=== PATIENT | female | born 1950 | race Caucasian/White ===

== ENCOUNTER 2020-06-22 21:40 | Inpatient (IN) | payer MEDICARE, MEDICAID ==
[2020-06-22 22:49] LABS: PTT 28.3 sec (22.9-36.1); Prothrombin Time 13.7 sec (12.0-14.7)
[2020-06-22 23:06] LABS: ALT (SGPT) 14 U/L (8-55); AST (SGOT) 14 U/L (5-34); Albumin 3.6 g/dL (3.4-4.8); Alkaline Phosphatase 121 U/L (40-110); Anion Gap 16 mmol/L (10-20); BUN (Urea Nitrogen) 14 mg/dL (9.8-20.1); Bilirubin, Total 0.6 mg/dL (0.2-1.2); Calc. Creatinine Clearance 0 mL/min (70-130); Calcium 8.5 mg/dL (7.8-10.44); Carbon Dioxide 18 mmol/L (23-31); Chloride 111 mmol/L (98-107); Globulin 2.9 g/dL (2.4-3.5); Glucose 118 mg/dL (80-115); Potassium 4.1 mmol/L (3.5-5.1); Protein, Total 6.5 g/dL (6.0-8.3); Sodium 141 mmol/L (136-145)
[2020-06-22 23:09] LABS: #Eosinphils 0.1 thou/uL (0.0-0.7); #Monocytes 1.1 thou/uL (0.11-0.59); %Basophils 0.3 % (0.0-1.0); %Eosinophils 0.6 % (0.0-10.0); %Lymphocytes 15.1 % (21.0-51.0); %Monocytes 8.5 % (0.0-10.0); %Neutrophils 75.4 % (42.0-75.0); Hemoglobin 13.7 g/dL (12.0-16.0); Mean Corpuscular HGB CONC 34.3 g/dL (32.0-36.0); Mean Corpuscular Hemoglobin 30.7 pg (27.0-31.0); Mean Corpuscular Volume 89.6 fL (78.0-98.0); Mean Platelet Volume 6.5 fL (7.4-10.4); Platelet Count 399 thou/uL (130-400); RBC Distribution Width 11.9 % (11.5-14.5); Red Blood Cell (RBC) Count 4.47 mill/uL (4.20-5.40); White Blood Cell (WBC) Count 13.2 thou/uL (4.8-10.8)
[2020-06-23] MEDS ORDERED: Lorazepam 2 MG/ML VIAL ONE (00:28)
--- NOTE | 2020-06-23 00:55 | PDOC.FPRHP ---
- History of Present Illness Chief Complaint: seizure History of Present Illness: Pt is a 69yo female with PMH dementia, seizure disorder and HTN who [facility]. At the outside ED she was found to meet SIRS criteria, source unknown and transferred here. The rest of the history was obtained from her daughter who is her MPOA and is at bedside. Pt had been given a dose of ativan before we saw her. She had 2 seizures at the [facility]entiary today. First one was witnessed by her while he was visiting her. She also had a seizure at the outside ED. Pt's baseline is A&O x1 or 2 and she has been at her baseline. No s/s of any illness and had been eating/drinking per normal. At outside ED she was found to meet SIRS criteria: tachycardia, tachypneic, WBC 16. Also latic acid 6.8. UA only positive for ketones and high specific gravity. Given 1L bolus, zosyn and vanc. Bcx and UCx done She takes keppra for seizure disorder and her keppra level was 10. ED Course: Zosyn, 2L IVF - Allergies/Adverse Reactions Allergies Allergy/AdvReac Type Severity Reaction Status Date / Time NON-FAT DRY MILK Allergy Uncoded 06/23/20 01:41 - Home Medications Medication Instructions Recorded Confirmed Type Atorvastatin Calcium [Lipitor] 20 mg PO DAILY 06/23/20 06/23/20 History Donepezil HCl [Aricept] 10 mg PO DAILY 06/23/20 06/23/20 History Melatonin 5 mg PO QPM 06/23/20 06/23/20 History QUEtiapine Fumarate [SEROquel] 50 mg PO TID 06/23/20 06/23/20 History clonazePAM [Clonazepam] 0.25 mg PO TID PRN 06/23/20 06/23/20 History levETIRAcetam [Keppra] 500 mg PO BID 06/23/20 06/23/20 History - History PMHx: Dementia, HLD, Cerebellar ataxia, epilepsy, HTN PSHx: appendectomy FHx: sister - dementia, mother of cancer, father pancreatic cancer Social: No TAD - Review of Systems ROS unobtainable: due to mental status - Vital signs BP: 135/88, HR 103, RR 14, Temp 98.4F, O2 95% on RA, Wt 56.7kg - Physical Exam Constitutional: NAD -Constitutional: somnolent s/p ativan HEENT: normocephalic and atraumatic Neck: supple Heart: RRR, normal S1/S2, no murmurs/rubs/gallops, no edema Lungs: CTAB, no respiratory distress, no wheezing Abdomen: soft, non-tender -Musculoskeletal: contractions of both UE and LE Neurological: no focal deficit Skin: no rash/lesions -Skin: no sacral wounds seen Heme/Lymphatic: no unusual bruising or bleeding FMR H&P: Results - Labs Result Diagrams: 06/23/20 02:21 06/23/20 02:21 Lab results: WBC 13.2 thou/uL (4.8-10.8) H 06/22/20 22:49 Hgb 13.7 g/dL (12.0-16.0) 06/22/20 22:49 Hct 40.1 % (36.0-47.0) 06/22/20 22:49 MCV 89.6 fL (78.0-98.0) 06/22/20 22:49 Plt Count 399 thou/uL (130-400) 06/22/20 22:49 Neutrophils % 75.4 % (42.0-75.0) H 06/22/20 22:49 Sodium 141 mmol/L (136-145) 06/22/20 22:32 Potassium 4.1 mmol/L (3.5-5.1) 06/22/20 22:32 Chloride 111 mmol/L (98-107) H 06/22/20 22:32 Carbon Dioxide 18 mmol/L (23-31) L 06/22/20 22:32 BUN 14 mg/dL (9.8-20.1) 06/22/20 22:32 Creatinine 0.80 mg/dL (0.6-1.1) 06/22/20 22:32 Glucose 118 mg/dL (80-115) H 06/22/20 22:32 Lactic Acid 2.4 mmol/L (0.5-2.2) H 06/22/20 22:49 Calcium 8.5 mg/dL (7.8-10.44) 06/22/20 22:32 Total Bilirubin 0.6 mg/dL (0.2-1.2) 06/22/20 22:32 AST 14 U/L (5-34) 06/22/20 22:32 ALT 14 U/L (8-55) 06/22/20 22:32 Alkaline Phosphatase 121 U/L (40-110) H 06/22/20 22:32 B-Natriuretic Peptide 33.9 pg/mL (0-100) 06/22/20 22:49 Serum Total Protein 6.5 g/dL (6.0-8.3) 06/22/20 22:32 Albumin 3.6 g/dL (3.4-4.8) 06/22/20 22:32 FMR H&P: A/P - Plan Pt is a 69yo female with hx of seizure disorder, HTN, dementia who was a transfer from outside ED for seizure and SIRS #SIRS -WBC 16>13, HR106 -lactic acid 6.8>2.4. UA neg -CXR: peribronchial cuffing b/l, official read pending -s/p 2L NS -possible developing pna vs. breakthrough seizure -given zosyn and vanc in ED. will change to azithromycin and rocephin for suspected CAP -pending BCx and UCx at [place] #seizure -hx of seizure disorder, on keppra -Brain CT report pending -last seizure was 1 year ago according to family -etiology: infection, TIA/CVA, worsening dementia -unable to fully assess neuro function due to recently being given ativan -keppra level 10 -consider neuro consult in am, may need to adjust keppra dose -ativan prn #HTN #HLD #Dementia -continue home meds -CM consulted for help with discharge planning back to [place] Code: DNR IVF: SL DVT Ppx: lovenox Diet: NPO pending BSS Dispo: Admit to stroke, will continue work up for source of infection, LOS>48hrs FMR H&P: Upper Level - Plan Date/Time: 06/23/20 0055 Marisol, [Pippa Campos], have evaluated this patient and agree with findings/plan as outlined by internal combustion engineer resident. Pertinent changes/additions are listed here. Liat is a 69 yo F with dementia, mood disorder and seizures who presents as lord tfx for concern for sepsis and seizures. She lives at [facility]. Per daughter she seized at the [facility] and so was brought to the [place] ER. She had another witnessed seizure and they gave her 1mg of ativan. Additionally she was found to be tachycardic with WBC 16 and latic acid ~6 so sepsis alert called and she was given 1L bolus, 1g Vanc, 4.5g zosyn and Bcx drawn. UA was negative aside from ketones and high specific gravity. Patient is non verbal and sedated b/c of ativan but daughter states she hadn't had any changes in behavior or eating or seemed to be off the past few days. In regards to seizure history she has been on Keppra for seizures from her dementia her daughter states and they have been controlled. Her keppra level was~10 in the ER here. SIRS with concern for PNA -Initial WBC of 16, tachycardic, tachypneic -Received 2L fluids -CXR with peribronchial cuffing, no consolidation, pending procal-could be early PNA -UA negative, pending UCx -s/p vanc & zosyn, will treat for CAP with rocephin & azithro, pending BCx Seizures -Two seizures in past 24 hours. Etiologies include TIA/CVA, infection, worsening dementia, dehydration -CT head official read pending, appears WNL -Admit to stroke, risk stratify, consider brain MRI in AM pending clinical status -Continue home keppra dosing, keppra level lower end of normal -Consider neuro consult in AM for EEG, may need to inc. keppra dosing -Strict bed rest, NPO pendin bedside swallow -Ativan PRN for breakthrough seizures Elevated lactic acid -6 down to 1.7 after 2L fluids Addendum - Attending - Attending Attestation Date/Time: 06/23/20 0830 I personally evaluated the patient and discussed the management with resident team I agree with the History, Examination, Assessment and Plan documented above with any addition or exceptions noted below. 69 yo female admitted for recurrent seizures on 06/22/20 with underlying epilepsy, dementia, and cerebellar ataxia No seizure activity since admission. CT negative for acute changes. Will increase Kepra level. Discuss with neuro if any new changes needed. Consult palliative care for goals of therapy. Consult speech to make sure safe for PO meds. D/c later today if able vs in AM. ABrayMD
[2020-06-23] MEDS ORDERED: Acetaminophen 325 MG TAB PO PRN (01:29)
[2020-06-23] MEDS ORDERED: Ondansetron PF 4 MG/2 ML Vial IVP PRN (01:29)
[2020-06-23] MEDS ORDERED: Ondansetron ODT 4 MG TAB PO PRN (01:29)
[2020-06-23] MEDS ORDERED: clonazePAM 0.5 MG TAB PO PRN (01:50)
[2020-06-23 02:01] LABS: Lactic Acid 1.7 mmol/L (0.5-2.2)
[2020-06-23] MEDS ORDERED: Lorazepam 2 MG/ML VIAL SLOW IVP PRN (02:13)
[2020-06-23] MEDS ORDERED: levETIRAcetam 500 MG TAB PO SCH ×3 (02:30→09:00)
[2020-06-23 02:31] LABS: #Eosinphils 0.1 thou/uL (0.0-0.7); #Lymphocytes 1.3 thou/uL (1.20-3.40); #Neutrophils 9.6 thou/uL (1.40-6.50); %Basophils 0.3 % (0.0-1.0); %Eosinophils 0.6 % (0.0-10.0); %Lymphocytes 10.9 % (21.0-51.0); %Monocytes 8.5 % (0.0-10.0); %Neutrophils 79.8 % (42.0-75.0); Mean Corpuscular Hemoglobin 30.6 pg (27.0-31.0); Mean Corpuscular Volume 89.9 fL (78.0-98.0); Mean Platelet Volume 6.3 fL (7.4-10.4); Platelet Count 341 thou/uL (130-400); RBC Distribution Width 11.9 % (11.5-14.5); Red Blood Cell (RBC) Count 4.59 mill/uL (4.20-5.40); White Blood Cell (WBC) Count 12.1 thou/uL (4.8-10.8)
[2020-06-23 02:53] LABS: Anion Gap 15 mmol/L (10-20); BUN (Urea Nitrogen) 16 mg/dL (9.8-20.1); Calc. Creatinine Clearance 0 mL/min (70-130); Calcium 8.4 mg/dL (7.8-10.44); Carbon Dioxide 19 mmol/L (23-31); Chloride 115 mmol/L (98-107); Glucose 110 mg/dL (80-115); Potassium 3.9 mmol/L (3.5-5.1); Sodium 145 mmol/L (136-145)
[2020-06-23] MEDS ORDERED: levETIRAcetam in NS 500 MG in Premix Bag 1 BAG IVPB SCH ×2 (03:45→09:00)
[2020-06-23] MEDS ORDERED: Azithromycin 500 MG in Sodium Chloride 0.9% 250 ML 250 ML IVPB SCH (04:00)
[2020-06-23] MEDS ORDERED: cefTRIAXone\\ROCEPHIN 1 GM in Sodium Chloride 0.9% 100 ML IVPB SCH (04:00)
[2020-06-23] MEDS ORDERED: cefTRIAXone\\ROCEPHIN 1 GM VIAL ONE (04:28)
[2020-06-23] MEDS ORDERED: Azithromycin 500 MG VIAL ONE (04:59)
--- NOTE | 2020-06-23 08:22 | CT ---
PRELIMINARY REPORT/[facility]/EMERGENCY AFTER HOURS PROCEDURE EXAM: CT Head Without Intravenous Contrast. CLINICAL HISTORY: SEPSIS, NEW ONSET OF SEIZURES. PT HAS HX OF ALZHEIMERS TECHNIQUE: Axial computed tomography images of the head/brain without intravenous contrast. COMPARISON: None provided. FINDINGS: BRAIN: No acute intraparenchymal hemorrhage. No mass lesion. No CT evidence for acute territorial infarct. N o midline shift or extra-axial collection. There is moderate age-related atrophy and periventricular deep white matter small vessel changes. VENTRICLES: No hydrocephalus. ORBITS: The orbits are unremarkable. SINUSES AND MASTOIDS: The paranasal sinuses and mastoid air cells are clear. SOFT TISSUES: No significant facial or scalp soft tissue swelling evident. No radiopaque foreign body is seen. BONES: No acute skull fracture. IMPRESSION: No acute intracranial abnormality. There is moderate age-related atrophy. ELECTRONICALLY SIGNED BY: Fidelia Muro DO Jun 23, 2020 1:16:27 AM ANALYST PROGRAMMER This report is intended for review by the ordering physician only, in accordance of law. If you recei ve this report in error, please call [facility] at [phone]. FINAL REPORT Exam: Head CT without contrast HISTORY: New onset seizure. Alzheimer's disease. COMPARISON: none FINDINGS: Hemorrhage: No intraparenchymal hemorrhage or extra-axial hematoma. Brain parenchyma: Cortical gupta-white matter differentiation is preserved. No mass effect or midline shift. Basilar cisterns are patent.The degree of cerebellar atrophy is greater than the degree of cerebral atrophy. Correlate for changes due to antiseizure medication. Ventricular system: Ventricles and sulci are patent and symmetric. Calvarium: Intact. Sinuses and mastoid air cells: Adequate aeration. IMPRESSION: 1. This report is in agreement with initial report by [facility]. 2. Asymmetric atrophy of the cerebellum with respect to the cerebrum. Correlate clinically. 3. No acute intracranial process. Transcribed Date/Time: 06/23/2020 10:37 AM
[2020-06-23] MEDS: Lactated Ringer's 1,000 ML IV SCH ×3 (08:24→23:56)
--- NOTE | 2020-06-23 08:30 | PDOC.BPN ---
<Makayla Lake - Last Filed: 06/23/20 10:26> - Brief Progress Note Encounter Date: 06/23/19 Encounter Time: 07:00 Pt was evaluated this morning in the ED. She is A&Ox0. She has a history of dementia and her baseline is A&0x1. Vitals WNL. Nurses stated she needed Ativan overnight not for seizures, but for agitation. Apparently, she also had 4 witnessed seizures at the [facility]itentiary and not 2. Will increase her home Keppra to 1000mg BID and consult Neurology for further recs. Brain MRI pending. She is NPO pending speech consult. MIVF started. Will change her meds to IV while she is NPO. Ativan PRN for agitation. Procal is negative so will discontinue Abx and follow up with Ucx and Bcx from [place] ED. Addendum - Attending - Attending Attestation Date/Time: 06/23/20 1026 I personally evaluated the patient and discussed the management with DrLawson [] I agree with the History, Examination, Assessment and Plan documented above with any addition or exceptions noted below. <Jodee Ortez - Last Filed: 06/23/20 13:04> Addendum - Attending - Attending Attestation Date/Time: 06/23/20 0830 I personally evaluated the patient and discussed the management with Dr. Lake I agree with the History, Examination, Assessment and Plan documented above with any addition or exceptions noted below. Continue to monitor throughout the day. Stop antibx. Increase Keppra. Awaiting bedside swallow evaluation. D/c later today vs AM. Neuro agreed with only increase in medication at this time. Sam
[2020-06-23] MEDS ORDERED: clonazePAM 0.5 MG TAB PO SCH (09:00)
--- NOTE | 2020-06-23 09:11 | RAD ---
Exam: Chest one view HISTORY:Cough Comparison: None FINDINGS: Cardiac silhouette: Normal Aorta: Unremarkable Pulmonary vessels: Normal Costophrenic angles: Clear LUNGS: Diminished lung volumes. Subsegmental atelectasis and scarring in the right lung base with ashley vation right hemidiaphragm. Pneumothorax: None Osseous abnormalities: None IMPRESSION: Scarring and atelectasis in the right lung base with elevation the right hemidiaphragm.
[2020-06-23 10:16] VITALS: BMI 21.7
[2020-06-23] MEDS ORDERED: Acetaminophen 650 MG Suppository PR PRN (10:31)
[2020-06-23] MEDS ORDERED: levETIRAcetam in NS 1,000 MG in Premix Bag 1 BAG IVPB SCH ×2 (10:31→11:00)
[2020-06-23] MEDS: Enoxaparin Sodium 40 MG/0.4 ML SYRINGE SC SCH (14:35)
[2020-06-23] MEDS: Donepezil HCl 10 MG TAB PO SCH (15:36)
[2020-06-23] MEDS: Atorvastatin Calcium 20 MG TAB PO SCH (15:36)
[2020-06-23 17:02] LABS: SARS-CoV-2 MS2 Positive; SARS-CoV-2 N Gene Negative; SARS-CoV-2 S Gene Negative; SARS-CoV-2 by NAA Not Detected (NotDetected); SARS-CoV-2 orf1ab Negative
[2020-06-23] MEDS: levETIRAcetam in NS 1,000 MG in Premix Bag 1 BAG IVPB SCH (21:43)
[2020-06-23] MEDS: Melatonin 3 MG TAB PO SCH ×2 (21:47→21:58)
[2020-06-24 04:39] LABS: #Basophils 0.1 thou/uL (0.0-0.2); #Eosinphils 0.2 thou/uL (0.0-0.7); #Lymphocytes 1.6 thou/uL (1.20-3.40); #Monocytes 0.6 thou/uL (0.11-0.59); #Neutrophils 5.9 thou/uL (1.40-6.50); %Basophils 0.6 % (0.0-1.0); %Eosinophils 2.7 % (0.0-10.0); %Lymphocytes 19.2 % (21.0-51.0); %Monocytes 7.4 % (0.0-10.0); %Neutrophils 70.1 % (42.0-75.0); Hemoglobin 11.7 g/dL (12.0-16.0); Mean Corpuscular HGB CONC 33.4 g/dL (32.0-36.0); Mean Corpuscular Hemoglobin 30.2 pg (27.0-31.0); Mean Corpuscular Volume 90.3 fL (78.0-98.0); Mean Platelet Volume 6.7 fL (7.4-10.4); Platelet Count 303 thou/uL (130-400); RBC Distribution Width 11.9 % (11.5-14.5); Red Blood Cell (RBC) Count 3.87 mill/uL (4.20-5.40); White Blood Cell (WBC) Count 8.4 thou/uL (4.8-10.8)
[2020-06-24 05:00] LABS: ALT (SGPT) 10 U/L (8-55); AST (SGOT) 12 U/L (5-34); Albumin 3.2 g/dL (3.4-4.8); Alkaline Phosphatase 89 U/L (40-110); Anion Gap 12 mmol/L (10-20); BUN (Urea Nitrogen) 12 mg/dL (9.8-20.1); Bilirubin, Total 0.9 mg/dL (0.2-1.2); Calc. Creatinine Clearance 65 mL/min (70-130); Calcium 8.2 mg/dL (7.8-10.44); Carbon Dioxide 24 mmol/L (23-31); Chloride 110 mmol/L (98-107); Globulin 2.3 g/dL (2.4-3.5); Glucose 88 mg/dL (80-115); Magnesium 1.7 mg/dL (1.6-2.6); Phosphorus 3.3 mg/dL (2.3-4.7); Potassium 3.2 mmol/L (3.5-5.1); Protein, Total 5.5 g/dL (6.0-8.3); Sodium 143 mmol/L (136-145)
[2020-06-24] MEDS ORDERED: Magnesium Sulfate 2 GM in Sodium Chloride 0.9% 100 ML IVPB SCH (06:15)
[2020-06-24] MEDS ORDERED: Potassium Phosphate 15 MMOL in Sodium Chloride 0.9% 250 ML 250 ML IVPB SCH (06:15)
[2020-06-24] MEDS ORDERED: Magnesium 2 GM/50 ML 2 GM in Premix Bag 1 BAG IVPB SCH (06:30)
--- NOTE | 2020-06-24 07:09 | PDOC.FM ---
- Subjective Subjective: Patient resting comfortably in bed. Sitter said patient had a good night. She seemed less agitated this morning. She responded to her name but did not answer questions when asked about when it was, where she was, etc. Speech saw patient and initiated a diet. Spoke with neurology who agreed on increase of her home Keppra home to 1000mg BID. Also spoke with patient's daughter who says this is her baseline. - Objective MAR Reviewed: Yes Vital Signs & Weight: Vital Signs (12 hours) Temp Pulse Resp BP Pulse Ox 06/24/20 04:00 99.3 F 68 20 115/57 L 93 L 06/24/20 00:00 99.3 F 82 20 123/78 94 L 06/23/20 20:00 98.5 F 82 20 150/77 H Weight Weight 52.299 kg I&O: 06/23/20 06/24/20 06/25/20 06:59 06:59 06:59 Intake Total 1950 Balance 1950 Result Diagrams: 06/24/20 04:08 06/24/20 04:08 Phys Exam - Physical Examination Constitutional: NAD (resting comfortably in bed) HEENT: moist MMs Respiratory: no wheezing Cardiovascular: RRR, no significant murmur Gastrointestinal: soft, non-tender Musculoskeletal: no edema, pulses present Neurological: moves all 4 limbs Deviation from normal: patient is not oriented to place or time, but this seems to be her baseline Skin: no rash, normal turgor Dx/Plan - Plan Plan: Pt is a 69yo female with hx of seizure disorder, HTN, dementia who was a transfer from outside ED for seizure and SIRS #breakthrough seizure -hx of seizure disorder, on keppra -Brain CT negative for any acute findings; asymmetric atrophy of cerebellum. Patient does have history of cerebellar ataxia -last seizure was 1 year ago according to family -etiology: infection, TIA/CVA, worsening dementia -unable to fully assess neuro function due to recently being given ativan on initial exam -keppra level 10 -Neuro consulted, appreciate the recs. MRI brain cancelled yesterday, not indicated at this time -Increased patient's home Keppra to 1000mg BID (06/23/20) -ativan prn #SIRS, resolved -WBC 16>13, HR106 -lactic acid 6.8>2.4. UA neg -CXR: scarring and atelectasis in right lung base with elevation of right hemidiaphragam -s/p 2L NS -given zosyn and vanc in ED. was started on azithromycin and rocephin for suspected CAP on 06/23/19 but stopped subsequently given negative procal and no obvious signs of infection -pending BCx and UCx at [place], will follow up -COVID neg, Flu neg Hypokalemia -aware, replace as indicated -monitor with morning labs -Mag also borderline low at 1.7, will replace #HTN #HLD #Dementia -continue home meds -CM consulted for help with discharge planning back to [place] Code: DNR IVF: SL DVT Ppx: lovenox Diet: diet as per speech recs Dispo: Admit to stroke, LOS>48hrs. Anticipate discharge back to [place] today. Addendum - Attending - Attending Attestation Date/Time: 06/24/20 1110 I personally evaluated the patient and discussed the management with Dr. [] I agree with the History, Examination, Assessment and Plan documented above with any addition or exceptions noted below. Stable and at baseline. Tolerating PO. Stop IVFs. D/c to [facility] today. Sam
[2020-06-24 07:19] VITALS: BP 145/74; TEMP 98.6
[2020-06-24] MEDS: Donepezil HCl 10 MG TAB PO SCH (09:00)
[2020-06-24] MEDS: Enoxaparin Sodium 40 MG/0.4 ML SYRINGE SC SCH (09:01)
[2020-06-24] MEDS: Atorvastatin Calcium 20 MG TAB PO SCH (09:01)
[2020-06-24] MEDS: levETIRAcetam in NS 1,000 MG in Premix Bag 1 BAG IVPB SCH (09:11)
--- NOTE | 2020-06-24 10:22 | CON ---
DATE OF CONSULTATION: 06/24/2020 CONSULTING PHYSICIAN: Hospitalist Services. IMPRESSION: 1. Breakthrough seizure. 2. Neurodegenerative process with secondary dementia. 3. Hypertension. PLAN: 1. Continue Keppra 1000 mg b.i.d. 2. The patient can return to the long term. HISTORY OF PRESENT ILLNESS: Ms. Carson is a 69-year-old white female, who apparently had her first seizure in 2018. Since then, she has had some progressive physical and cognitive decline. Her reports that cognitively she is not that bad off, but it seems a bit inconsistent. She has physically declined to the point that she is bedfast. She is currently in a long term down in [place]. She was witnessed to have a seizure and brought up for evaluation. Her white count was a little elevated after the seizure and was thought to possibly have some ongoing sepsis. Subsequent followup showed unremarkable laboratory studies. Her CT of the brain showed some cerebral atrophy, but it was otherwise unremarkable. She has not had any further seizures since admission. PAST MEDICAL HISTORY: As listed above. ALLERGIES: PER CHART. SOCIAL HISTORY: No tobacco or alcohol. She is . FAMILY HISTORY: Noncontributory. REVIEW OF SYSTEMS: Review of systems is not obtainable due to her cognitive state. PHYSICAL EXAMINATION: GENERAL: She is reasonably well-nourished, elderly lady, curled up in position. HEENT: Pupils are equal and reactive. Conjunctivae clear. NECK: No lymphadenopathy noted. ABDOMEN: Soft and nontender. EXTREMITIES: No cyanosis or edema. SKIN: Clear. NEUROLOGIC: She really did not follow any commands or act appropriately. She had clear speech. She tended to repeat the same phrase. She reportedly recognized her . She denied having any ongoing pain. No abnormal movements were seen. SUMMARY: This is an elderly lady with a neurodegenerative process resulting in secondary seizures. I agree with current dosing of her medication. I would be happy to follow up with her as an outpatient. Job ID: [id number]
--- NOTE | 2020-06-24 13:14 | PDOC.FMACP ---
Advance Care Planning - Note Participants: family, palliative care Summary: Palliative care reviewed Advanced Care Planning with patient daughter. The diagnosis, prognosis and goals of care were discussed. Appropriate forms and documentation to accomplish the goals of care were discussed. All questions were answered. Understanding of decline, and consideration to readdress resuscitation status Hopeful for return to [facility] and follow up with primary care Daughter understanding of her mothers disease processes and trajectory recently to decline. Consideration of palliating and revisit goal of care as trajectory indicates Time Spent (mins): 15
--- NOTE | 2020-06-24 16:36 | DIS ---
DATE OF ADMISSION: 06/23/2020 DATE OF DISCHARGE: 06/24/2020 RESIDENT: Maakyla Lake MD, PGY-1. ADMITTING ATTENDING: Damon Griffith MD DISCHARGE ATTENDING: Jodee Ortez MD CONSULTS: 1. Dr. Velez, Neurology. 2. Palliative care. 3. Speech. 4. Case Management. PROCEDURES: Brain CT on 06/22/2020, which showed no acute intracranial abnormality, asymmetric atrophy of the cerebellum with respect to the cerebrum. Chest x-ray on 06/23/2020, which showed scarring and atelectasis in the right lung base with elevation of the right hemidiaphragm. PRIMARY DIAGNOSIS: Breakthrough seizure. SECONDARY DIAGNOSES: 1. Systemic inflammatory response syndrome, resolved. 2. Hypokalemia. 3. Hypertension. 4. Hyperlipidemia. 5. Dementia. DISCHARGE MEDICATIONS: 1. Keppra 1000 mg p.o. b.i.d. 2. Seroquel 50 mg p.o. t.i.d. 3. Atorvastatin 20 mg p.o. daily. 4. Clonazepam 0.25 mg p.o. t.i.d. p.r.n. 5. Melatonin 5 mg p.o. every evening. 6. Aricept 10 mg p.o. daily. Discontinued medications; Keppra 500 mg p.o. b.i.d. HISTORY OF PRESENT ILLNESS/HOSPITAL COURSE: The patient is a 69-year-old female with past medical history of dementia, seizure disorder, and hypertension, who presented to an outside ER from alf secondary to 4 witnessed seizures. At the outside ER, she was found to meet SIRS criteria with no known source and transferred to [facility]. The rest of her history was obtained from her daughter, who is her MPOA at bedside. The patient was given a dose of Ativan before examination which made it hard to interview. The patient's baseline is alert and oriented x1 given her dementia and other neurologic deficits. There is no report or signs or symptoms of any illness, and the patient has been eating and drinking per normal. As per her daughter, she has been at her baseline in the previous days. At the outside ER, she was found to meet SIRS criteria with tachycardia, tachypnea and elevated white blood cell count of 16. Her lactic acid was also elevated at 6.8. Her UA was negative for any signs of infection. She was given 1 L bolus, Zosyn, and vanc. Blood culture and urine cultures were obtained on day of discharge. On day of discharge, blood culture just showed contamination with one of two cultures likely growing Staph epidermidis. Her Keppra level was found to be 10. The patient initially was agitated and not oriented to person, place, or time. Her Keppra was increased to 1000 mg b.i.d. given her breakthrough seizures and Neurology was consulted, who agreed with that increase and suggested outpatient Neurology followup. The patient was made n.p.o. given her mental status and speech was consulted, who cleared her for diet and the patient continued to improve to her baseline. Lactic acid trended down. Daughter was contacted who agrees that she was much improved. DISPOSITION: Stable. DISCHARGE INSTRUCTIONS: 1. Location: [facility]. 2. Diet: Heart healthy diet. 3. Activity: As tolerated, however, the patient will need assist with activity given mental status baseline. 4. Followup: Follow up with PCP in 1 to 2 weeks and follow up with Dr. Velez, outpatient neurology. Job ID: [id number] [facility] HEALTH[facility]
== END 2020-06-24 13:50 | DRG 101 ==
LOC: ERS 21:40 → ERHOLD 06-23 01:29 → 2NO 06-23 07:52
PROVIDERS: ADMIT Family Medicine; ATTEND Family Medicine
DX: G40.909 Epilepsy, unspecified, not intractable, without status epilepticus (principal); R65.10 Systemic inflammatory response syndrome (SIRS) of non-infectious origin without acute organ dysfunction; F03.91 Unspecified dementia, unspecified severity, with behavioral disturbance; Z66 Do not resuscitate; E87.6 Hypokalemia; I10 Essential (primary) hypertension; E78.5 Hyperlipidemia, unspecified; Z20.822 Contact with and (suspected) exposure to COVID-19; Z91.011 Allergy to milk products; Z79.899 Other long term (current) drug therapy; Z90.49 Acquired absence of other specified parts of digestive tract; Z81.8 Family history of other mental and behavioral disorders; Z80.0 Family history of malignant neoplasm of digestive organs
CPT/HCPCS: 36415; 70450; 71045; 80048; 80053; 80177; 83605; 83735; 83880; 84100; 84145; 84443; 84484; 85025; 85610; 85730; 87635; 87804; 93005; 94760; 96374; J0456; J0696; J1650; J1953; J2060; J3475; J3490; J7050; U0003

== ENCOUNTER 2020-06-25 07:24 | Emergency (ER) | payer MEDICARE, MEDICAID ==
[2020-06-25 08:07] LABS: #Eosinphils 0.1 thou/uL (0.0-0.7); #Lymphocytes 0.7 thou/uL (1.20-3.40); #Monocytes 0.4 thou/uL (0.11-0.59); #Neutrophils 9.8 thou/uL (1.40-6.50); %Basophils 0.1 % (0.0-1.0); %Eosinophils 0.7 % (0.0-10.0); %Lymphocytes 6.3 % (21.0-51.0); %Monocytes 3.8 % (0.0-10.0); %Neutrophils 89.2 % (42.0-75.0); Hemoglobin 13.9 g/dL (12.0-16.0); Mean Corpuscular HGB CONC 32.8 g/dL (32.0-36.0); Mean Corpuscular Volume 91.5 fL (78.0-98.0); Mean Platelet Volume 6.7 fL (7.4-10.4); Platelet Count 349 thou/uL (130-400); RBC Distribution Width 11.7 % (11.5-14.5); Red Blood Cell (RBC) Count 4.64 mill/uL (4.20-5.40)
[2020-06-25 08:32] LABS: ALT (SGPT) 12 U/L (8-55); AST (SGOT) 14 U/L (5-34); Albumin 3.7 g/dL (3.4-4.8); Alkaline Phosphatase 104 U/L (40-110); Anion Gap 19 mmol/L (10-20); BUN (Urea Nitrogen) 11 mg/dL (9.8-20.1); Bilirubin, Total 0.9 mg/dL (0.2-1.2); Calc. Creatinine Clearance 0 mL/min (70-130); Calcium 8.8 mg/dL (7.8-10.44); Carbon Dioxide 22 mmol/L (23-31); Chloride 110 mmol/L (98-107); Glucose 102 mg/dL (80-115); Potassium 3.7 mmol/L (3.5-5.1); Protein, Total 6.7 g/dL (6.0-8.3); Sodium 147 mmol/L (136-145)
[2020-06-25 08:44] LABS: Bacteria/HPF None Seen HPF (None Seen); Bilirubin Negative (Negative); Blood, Urine Negative (Negative); Clarity Clear (Clear); Glucose, Urine (Dipstick) Normal (Negative); Ketone, Urine Trace mg/dL (Negative); Leukocyte Negative Leu/uL (Negative); Nitrite Negative (Negative); Protein, Urine (Dipstick) 30 mg/dL (Neg-Trace); RBC/HPF 0-3 HPF (0-3); Specific Gravity, Urine 1.018 (1.002-1.036); Urobilinogen Normal mg/dL (Less than 2); WBC/HPF 0-3 HPF (0-3)
--- NOTE | 2020-06-30 13:37 | EKG ---
Test Reason : Blood Pressure : / mmHG Vent. Rate : 091 BPM Atrial Rate : 091 BPM P-R Int : 214 ms QRS Dur : 084 ms QT Int : 358 ms P-R-T Axes : 061 046 038 degrees QTc Int : 440 ms Sinus rhythm with 1st degree A-V block Possible Left atrial enlargement Cannot rule out Anterior infarct , age undetermined Abnormal ECG Confirmed by BRENT BAEZA, JAYSON ([id number]), editorial clerk MARIJA MONTOYA ([id number]) on 06/30/2020 1:37:13 PM Referred By: Confirmed By:AJYSON KENNEDY MD
== END 2020-06-25 13:13 ==
LOC: ERS 07:24
DX: G40.909 Epilepsy, unspecified, not intractable, without status epilepticus (principal); Z79.899 Other long term (current) drug therapy; E78.5 Hyperlipidemia, unspecified; I10 Essential (primary) hypertension; F03.90 Unspecified dementia, unspecified severity, without behavioral disturbance, psychotic disturbance, mood disturbance, and anxiety
CPT/HCPCS: 36415; 51701; 80053; 81003; 81015; 84484; 85025; 87040; 87077; 87086; 87149; 87186; 93005